=== PATIENT | female | born 1975 | race African-American/Black ===

== ENCOUNTER 2022-06-08 11:34 | Inpatient (IN) | payer OTHER ==
[2022-06-08] MEDS ORDERED: ONDANSETRON *ODT* 4 MG TABLET SL PRN (12:26)
[2022-06-08] MEDS ORDERED: NICOTINE 10 MG CARTRIDGE (INHALER) IH PRN (12:26)
[2022-06-08] MEDS ORDERED: BISMUTH SUBSALICYLATE 262 MG/15 ML BTL PO PRN (12:26)
[2022-06-08] MEDS ORDERED: ACETAMINOPHEN 325 MG TABLET (FP) PO PRN (12:26)
[2022-06-08] MEDS ORDERED: BENZOCAINE/MENTHOL (CHLORASEPTIC ) LOZENGE MM PRN (12:26)
[2022-06-08] MEDS ORDERED: IBUPROFEN 600 MG TABLET (FP) PO PRN (12:26)
[2022-06-08] MEDS ORDERED: MAGNESIUM HYDROX 2400MG/30ML ORAL SUSPENSION 30 ML CUP PO PRN (12:26)
[2022-06-08] MEDS ORDERED: NALOXONE HCL (KLOXXADO) 8 MG SPRAY NS PRN (12:26)
[2022-06-08] MEDS ORDERED: LOPERAMIDE HCL 2 MG CAPSULE PO PRN (12:26)
[2022-06-08] MEDS ORDERED: MAGNESIUM CITRATE 300 ML BOTTLE PO PRN (12:26)
[2022-06-08] MEDS ORDERED: DICYCLOMINE HCL 10 MG CAPSULE PO PRN (12:26)
[2022-06-08] MEDS ORDERED: IBUPROFEN 400 MG TABLET (FP) PO PRN (12:26)
[2022-06-08] MEDS ORDERED: MAG HYDROX/AL HYDROX/SIMETH 30 ML UNIT-DOSE CUP PO PRN (12:26)
[2022-06-08] MEDS ORDERED: chlordiazePOXIDE HCL 25 MG CAPSULE PO PRN (12:26)
[2022-06-08 12:42] VITALS: BMI 35.2
[2022-06-08] MEDS: chlordiazePOXIDE HCL 25 MG CAPSULE PO SCH ×3 (13:26→22:16)
[2022-06-08] MEDS: PRENATAL VITAMINS W/ FOLIC ACID TABLET (FP) PO SCH (13:27)
[2022-06-08] MEDS: hydrOXYzine PAMOATE 25 MG CAPSULE (FP) PO PRN ×2 (13:28→22:16)
[2022-06-08] MEDS: METHOCARBAMOL 500 MG TABLET PO PRN ×2 (14:35→22:18)
[2022-06-08 17:16] VITALS: RESP 18
[2022-06-08] MEDS: MELATONIN 5 MG TABLETS PO SCH (22:16)
[2022-06-08] MEDS: THIAMINE HCL 100 MG TABLET (FP) PO SCH (22:16)
[2022-06-08] MEDS: ACETAMINOPHEN 325 MG TABLET (FP) PO PRN (22:17)
[2022-06-09] MEDS: METHOCARBAMOL 500 MG TABLET PO PRN (03:56)
[2022-06-09] MEDS: chlordiazePOXIDE HCL 25 MG CAPSULE PO SCH ×4 (05:59→23:31)
[2022-06-09] MEDS: hydrOXYzine PAMOATE 25 MG CAPSULE (FP) PO PRN (06:01)
[2022-06-09 09:48] LABS: ALBUMIN 2.8 g/dl (3.4-5.0); CALCIUM 8.6 mg/dL (8.5-10.1)
[2022-06-09 09:49] LABS: BLOOD UREA NITROGEN 13.7 mg/dL (7-18)
[2022-06-09 09:53] LABS: BILIRUBIN,TOTAL 0.4 mg/dL (0.2-1); CREATININE 0.9 mg/dL (0.55-1.3); TOT PROT 6.8 g/dl (6.4-8.2)
[2022-06-09] MEDS ORDERED: NICOTINE 14 MG/24 HOURS TOPICAL PATCH TD SCH (10:00)
[2022-06-09 10:06] LABS: HEMATOCRIT 34.8 % (32.4-45.2); HEMOGLOBIN 10.4 GM/dL (10.7-15.3); MCHC 29.8 g/dl (32.0-36.0); MEAN CELL VOLUME 77.1 fl (80-96); MEAN PLT VOLUME 8.2 fl (7.5-11.1); PLATELET COUNT 303 10^3/uL (134-434); RBC 4.51 M/mm3 (3.60-5.2); RDW 16.8 % (11.6-15.6); WHITE BLOOD COUNT 14.2 K/mm3 (4.0-10.0)
[2022-06-09] MEDS: PRENATAL VITAMINS W/ FOLIC ACID TABLET (FP) PO SCH (10:21)
[2022-06-09] MEDS: ACETAMINOPHEN 325 MG TABLET (FP) PO PRN (10:39)
[2022-06-09] MEDS: BACITRACIN 15 GM TUBE TOPICAL OINTMENT TP SCH ×2 (13:14→23:30)
[2022-06-09] MEDS: LACTULOSE 20 GM/30 ML UDC (FOR ORAL USE ONLY) PO SCH ×2 (14:47→23:30)
[2022-06-09] MEDS ORDERED: METOPROLOL TARTRATE 25 MG TABLET (FP) PO ONE (15:06)
[2022-06-09 15:09] VITALS: BP 178/122; PULSE 89; TEMP 98.6
[2022-06-09] MEDS: THIAMINE HCL 100 MG TABLET (FP) PO SCH (23:30)
[2022-06-09] MEDS: MELATONIN 5 MG TABLETS PO SCH (23:30)
[2022-06-10] MEDS ORDERED: chlordiazePOXIDE HCL 25 MG CAPSULE PO SCH (05:00)
[2022-06-10] MEDS ORDERED: amLODIPine BESYLATE 10 MG TABLET (FP) PO SCH (10:00)
[2022-06-11] MEDS ORDERED: chlordiazePOXIDE HCL 10 MG CAPSULE PO PRN
[2022-06-11] MEDS ORDERED: chlordiazePOXIDE HCL 10 MG CAPSULE PO SCH (05:00)
[2022-06-12] MEDS ORDERED: chlordiazePOXIDE HCL 10 MG CAPSULE PO SCH (05:00)
[2022-06-13] MEDS ORDERED: chlordiazePOXIDE HCL 10 MG CAPSULE PO ONE (05:00)
== END 2022-06-09 23:48 | disposition short-term general hospital (02) | DRG 774 ==
LOC: YASAS 11:34 → Y3N 12:38
PROVIDERS: ADMIT Allergy & Immunology; ATTEND Surgery
PROC: HZ2ZZZZ Detoxification Services for Substance Abuse Treatment (ICD-10-PCS; principal; 2022-06-08)
DX: F10.230 Alcohol dependence with withdrawal, uncomplicated (principal); F14.20 Cocaine dependence, uncomplicated; F12.20 Cannabis dependence, uncomplicated; F17.210 Nicotine dependence, cigarettes, uncomplicated; F33.9 Major depressive disorder, recurrent, unspecified; D64.9 Anemia, unspecified; D72.829 Elevated white blood cell count, unspecified; R79.89 Other specified abnormal findings of blood chemistry; R94.31 Abnormal electrocardiogram [ECG] [EKG]; E66.9 Obesity, unspecified; Z68.35 Body mass index [BMI] 35.0-35.9, adult; Z91.199 Patient's noncompliance with other medical treatment and regimen due to unspecified reason
CPT/HCPCS: 36415; 80053; 81025; 82140; 85027; 86780; 93005; 93010; C9803-CS; U0003; U0005

== ENCOUNTER 2022-06-09 16:39 | Inpatient (IN) | payer OTHER ==
[2022-06-09] MEDS ORDERED: morphine CARPU-JECT 4 MG/1 ML DISP.SYRIN IVPUSH ONE (17:02)
[2022-06-09] MEDS ORDERED: FAMOTIDINE 20 MG/50 ML IVPB 20 MG/50 ML MG IVPB ONE (17:02)
[2022-06-09] MEDS ORDERED: ONDANSETRON 4 MG/2 ML VIAL IVPUSH ONE (17:02)
[2022-06-09] MEDS ORDERED: LACTATED RINGERS SOLUTION 1000 ML INFUS.BAG IV ONE (17:02)
[2022-06-09 17:20] VITALS: BMI 33.2
[2022-06-09] MEDS ORDERED: ACETAMINOPHEN 1000 MG/100 ML BAG IVPB ONE (17:21)
[2022-06-09] MEDS ORDERED: ONDANSETRON 4 MG/2 ML VIAL ONE (17:51)
[2022-06-09] MEDS ORDERED: ACETAMINOPHEN INJECTION 100 ML IVPB ONE (17:51)
[2022-06-09] MEDS ORDERED: FAMOTIDINE 10 MG/ML VIAL IVPB ONE (17:52)
[2022-06-09 18:22] LABS: VENOUS O2 SATURATION 31.7 % (70-80); VENOUS PCO2 60.3 mmHg (38-52); VENOUS PH 7.312 (7.310-7.410)
[2022-06-09 18:25] LABS: BASO % 0.4 % (0-2.0); EOS % 0.3 % (0-4.5); HEMATOCRIT 35.1 % (32.4-45.2); HEMOGLOBIN 11.3 GM/dL (10.7-15.3); MCH 24.4 pg (25.7-33.7); MCHC 32.3 g/dl (32.0-36.0); MEAN CELL VOLUME 75.6 fl (80-96); MEAN PLT VOLUME 8.2 fl (7.5-11.1); MONO % 5.4 % (3.8-10.2); NEUT % 90.9 % (42.8-82.8); PLATELET COUNT 389 10^3/uL (134-434); RBC 4.65 M/mm3 (3.60-5.2); RDW 16.7 % (11.6-15.6); WHITE BLOOD COUNT 18.8 K/mm3 (4.0-10.0)
[2022-06-09 18:35] LABS: INR 1.1 (0.83-1.09); PROTHROMBIN TIME (PATIENT) 12.7 SEC (9.7-13.0)
[2022-06-09 18:38] LABS: ACTIVATED PTT 27.4 SECONDS (25.2-36.5)
[2022-06-09 18:39] LABS: ALBUMIN 3.2 g/dl (3.4-5.0); BLOOD UREA NITROGEN 16.3 mg/dL (7-18); CALCIUM 9.2 mg/dL (8.5-10.1); MAGNESIUM 2.2 mg/dL (1.8-2.4)
[2022-06-09 18:45] LABS: BILIRUBIN,TOTAL 0.3 mg/dL (0.2-1); TOT PROT 7.8 g/dl (6.4-8.2)
[2022-06-09 18:55] LABS: EPI CELLS >36 /uL (0-25.1); HYALINE CASTS 1 /uL (0-3.1); URINE APPEARANCE TURBID; URINE BACTERIA >9,000 /uL (0-1359); URINE BILIRUBIN NEGATIVE (NEGATIVE); URINE COLOR YELLOW; URINE GLUCOSE (UA) NEGATIVE (NEGATIVE); URINE KETONE NEGATIVE (NEGATIVE); URINE LEUK ESTERASE 3+ (NEGATIVE); URINE NITRITE NEGATIVE (NEGATIVE); URINE PROTEIN 1+ (NEGATIVE); URINE RBC 102 /uL (0-23.9); URINE UROBILINOGEN 0.2 mg/dL (0.2-1.0); URINE WBC 2338 /uL (0-25.8)
[2022-06-09] MEDS ORDERED: PIPERACILLIN/TAZOB 4.5 GM 4.5 GM in DEXTROSE 5%-WATER 100 ML IVPB ONE (19:50)
[2022-06-09] MEDS ORDERED: PIPERACILLIN/TAZOB 4.5 GM 4.5 GM/100 ML BAG IVPB ONE (20:27)
[2022-06-10] MEDS ORDERED: LORazepam 1 MG TABLET PO PRN (01:26)
[2022-06-10] MEDS ORDERED: ACETAMINOPHEN 325 MG TABLET (FP) PO ONE (02:27)
[2022-06-10] MEDS ORDERED: MELATONIN 5 MG TABLETS PO ONE (02:27)
[2022-06-10] MEDS: LORazepam 1 MG TABLET PO SCH ×4 (06:25→23:43)
[2022-06-10] MEDS: POLYETHYLENE GLYCOL (HEALTHYLAX) 3350 17 GM PACKET PO SCH ×3 (06:27→23:01)
[2022-06-10 09:44] LABS: CALCIUM 8.8 mg/dL (8.5-10.1)
[2022-06-10 09:45] LABS: ALBUMIN 2.6 g/dl (3.4-5.0); MAGNESIUM 2.2 mg/dL (1.8-2.4)
[2022-06-10 09:48] LABS: CREATININE 0.9 mg/dL (0.55-1.3)
[2022-06-10 09:49] LABS: BILIRUBIN,TOTAL 0.5 mg/dL (0.2-1); TOT PROT 6.4 g/dl (6.4-8.2)
[2022-06-10] MEDS: FOLIC ACID 1 MG TABLET (FP) PO SCH (10:02)
[2022-06-10] MEDS: ENOXAPARIN NA (PORCINE) 40 MG/0.4 ML DISP.SYRIN SQ SCH (10:02)
[2022-06-10] MEDS: amLODIPine BESYLATE 5 MG TABLET (FP) PO SCH (10:02)
[2022-06-10] MEDS: CEFTRIAXONE 1 GM in DEXTROSE 5%-WATER - 50 ML IVPB SCH (10:02)
[2022-06-10] MEDS: THIAMINE HCL 100 MG TABLET (FP) PO SCH (10:02)
[2022-06-10] MEDS ORDERED: BISACODYL 10 MG SUPP.RECT PR ONE (14:19)
[2022-06-10] MEDS: ACETAMINOPHEN 325 MG TABLET (FP) PO PRN (17:55)
[2022-06-10] MEDS: LISINOPRIL 20 MG TABLET PO SCH (23:01)
[2022-06-11] MEDS ORDERED: LORazepam 1 MG TABLET PO SCH (05:00)
[2022-06-11] MEDS: POLYETHYLENE GLYCOL (HEALTHYLAX) 3350 17 GM PACKET PO SCH ×3 (06:00→23:18)
[2022-06-11] MEDS: FOLIC ACID 1 MG TABLET (FP) PO SCH (09:03)
[2022-06-11] MEDS: amLODIPine BESYLATE 5 MG TABLET (FP) PO SCH (09:03)
[2022-06-11] MEDS: THIAMINE HCL 100 MG TABLET (FP) PO SCH (09:03)
[2022-06-11] MEDS: ENOXAPARIN NA (PORCINE) 40 MG/0.4 ML DISP.SYRIN SQ SCH (09:04)
[2022-06-11] MEDS: CEFTRIAXONE 1 GM in DEXTROSE 5%-WATER - 50 ML IVPB SCH (09:04)
[2022-06-11] MEDS: ACETAMINOPHEN 325 MG TABLET (FP) PO PRN ×2 (09:34→23:25)
[2022-06-11] MEDS ORDERED: BISACODYL 10 MG SUPP.RECT PR ONE (10:45)
[2022-06-11] MEDS ORDERED: LORazepam 2 MG/ML SDV VIAL IVPUSH PRN (13:23)
[2022-06-11 13:36] LABS: BASO % 0.3 % (0-2.0); EOS % 0.4 % (0-4.5); HEMATOCRIT 32.8 % (32.4-45.2); HEMOGLOBIN 10.1 GM/dL (10.7-15.3); LYMPH % 7.9 % (8-40); MCH 23.2 pg (25.7-33.7); MCHC 30.7 g/dl (32.0-36.0); MEAN CELL VOLUME 75.6 fl (80-96); MEAN PLT VOLUME 8.6 fl (7.5-11.1); MONO % 10.5 % (3.8-10.2); NEUT % 80.9 % (42.8-82.8); PLATELET COUNT 347 10^3/uL (134-434); RBC 4.34 M/mm3 (3.60-5.2); RDW 15.8 % (11.6-15.6); WHITE BLOOD COUNT 16.8 K/mm3 (4.0-10.0)
[2022-06-11 13:45] LABS: BLOOD UREA NITROGEN 10.6 mg/dL (7-18); CALCIUM 8.3 mg/dL (8.5-10.1); MAGNESIUM 2.5 mg/dL (1.8-2.4)
[2022-06-11 13:47] LABS: CREATININE 0.8 mg/dL (0.55-1.3)
[2022-06-11 13:48] LABS: PHOSPHOROUS 3.3 mg/dL (2.5-4.9)
[2022-06-11] MEDS ORDERED: amLODIPine BESYLATE 5 MG TABLET (FP) PO ONE (15:50)
[2022-06-11] MEDS: LISINOPRIL 20 MG TABLET PO SCH (23:18)
[2022-06-12] MEDS ORDERED: LORazepam 0.5 MG TABLET PO PRN
[2022-06-12] MEDS ORDERED: LORazepam 0.5 MG TABLET PO SCH (05:00)
[2022-06-12] MEDS: POLYETHYLENE GLYCOL (HEALTHYLAX) 3350 17 GM PACKET PO SCH ×3 (06:11→22:31)
[2022-06-12] MEDS: amLODIPine BESYLATE 5 MG TABLET (FP) PO SCH (10:05)
[2022-06-12] MEDS: THIAMINE HCL 100 MG TABLET (FP) PO SCH (10:06)
[2022-06-12] MEDS: FOLIC ACID 1 MG TABLET (FP) PO SCH (10:06)
[2022-06-12] MEDS: ENOXAPARIN NA (PORCINE) 40 MG/0.4 ML DISP.SYRIN SQ SCH (10:06)
[2022-06-12 12:37] LABS: BLOOD UREA NITROGEN 10.2 mg/dL (7-18); CALCIUM 9.3 mg/dL (8.5-10.1)
[2022-06-12 12:38] LABS: ALBUMIN 2.7 g/dl (3.4-5.0)
[2022-06-12 12:41] LABS: CREATININE 0.8 mg/dL (0.55-1.3)
[2022-06-12 12:42] LABS: BILIRUBIN,TOTAL 0.4 mg/dL (0.2-1)
[2022-06-12 12:46] LABS: TOT PROT 7.1 g/dl (6.4-8.2)
[2022-06-12 12:47] LABS: HEMATOCRIT 31.8 % (32.4-45.2); HEMOGLOBIN 10.1 GM/dL (10.7-15.3); MCH 23.7 pg (25.7-33.7); MCHC 31.9 g/dl (32.0-36.0); MEAN CELL VOLUME 74.5 fl (80-96); MEAN PLT VOLUME 8.2 fl (7.5-11.1); PLATELET COUNT 380 10^3/uL (134-434); RBC 4.27 M/mm3 (3.60-5.2); WHITE BLOOD COUNT 12.8 K/mm3 (4.0-10.0)
[2022-06-12] MEDS: CEFTRIAXONE 1 GM in DEXTROSE 5%-WATER - 50 ML IVPB SCH ×2 (15:28→19:44)
[2022-06-12] MEDS ORDERED: NITROFURANTOIN MACROCRYSTAL 50 MG CAPSULE (FP) PO SCH (18:00)
[2022-06-12] MEDS: ACETAMINOPHEN 325 MG TABLET (FP) PO PRN (19:01)
[2022-06-12] MEDS: LISINOPRIL 20 MG TABLET PO SCH (22:31)
[2022-06-13] MEDS ORDERED: guaiFENesin 200 MG/10 ML 10 ML UNIT-DOSE CUPS PO ONE (00:52)
[2022-06-13] MEDS ORDERED: MELATONIN 5 MG TABLETS PO ONE ×2 (00:52→20:00)
[2022-06-13] MEDS ORDERED: BENZOCAINE/MENTH/CETYLPYRD CL 1 EACH LOZENGE MM PRN (00:53)
[2022-06-13] MEDS ORDERED: LORazepam 0.5 MG TABLET PO ONE (05:00)
[2022-06-13] MEDS: POLYETHYLENE GLYCOL (HEALTHYLAX) 3350 17 GM PACKET PO SCH ×3 (05:58→21:10)
[2022-06-13] MEDS: THIAMINE HCL 100 MG TABLET (FP) PO SCH ×2 (10:52→11:56)
[2022-06-13] MEDS: ENOXAPARIN NA (PORCINE) 40 MG/0.4 ML DISP.SYRIN SQ SCH ×2 (10:52→11:55)
[2022-06-13] MEDS: amLODIPine BESYLATE 5 MG TABLET (FP) PO SCH ×2 (10:52→11:55)
[2022-06-13] MEDS: FOLIC ACID 1 MG TABLET (FP) PO SCH ×2 (10:52→11:55)
[2022-06-13] MEDS: CEFTRIAXONE 1 GM in DEXTROSE 5%-WATER - 50 ML IVPB SCH (10:53)
[2022-06-13 10:58] LABS: HEMATOCRIT 34.9 % (32.4-45.2); HEMOGLOBIN 10.6 GM/dL (10.7-15.3); MCH 22.9 pg (25.7-33.7); MCHC 30.4 g/dl (32.0-36.0); MEAN CELL VOLUME 75.2 fl (80-96); MEAN PLT VOLUME 7.8 fl (7.5-11.1); PLATELET COUNT 404 10^3/uL (134-434); RBC 4.65 M/mm3 (3.60-5.2); RDW 15.8 % (11.6-15.6); WHITE BLOOD COUNT 12.7 K/mm3 (4.0-10.0)
[2022-06-13 11:35] LABS: ALBUMIN 2.7 g/dl (3.4-5.0); BLOOD UREA NITROGEN 7.9 mg/dL (7-18)
[2022-06-13 11:36] LABS: CALCIUM 9.5 mg/dL (8.5-10.1)
[2022-06-13 11:38] LABS: BILIRUBIN,TOTAL 0.4 mg/dL (0.2-1); CREATININE 0.9 mg/dL (0.55-1.3); TOT PROT 7.4 g/dl (6.4-8.2)
[2022-06-13] MEDS: NICOTINE 7 MG/24 HOURS TOPICAL PATCH TD SCH (14:32)
[2022-06-13] MEDS: NITROFURANTOIN MACROCRYSTAL 50 MG CAPSULE (FP) PO SCH ×2 (18:11→21:10)
[2022-06-13] MEDS: LISINOPRIL 20 MG TABLET PO SCH (21:12)
[2022-06-14] MEDS: POLYETHYLENE GLYCOL (HEALTHYLAX) 3350 17 GM PACKET PO SCH ×2 (05:44→16:16)
[2022-06-14] MEDS: FOLIC ACID 1 MG TABLET (FP) PO SCH (09:26)
[2022-06-14] MEDS: NITROFURANTOIN MACROCRYSTAL 50 MG CAPSULE (FP) PO SCH ×2 (09:26→15:16)
[2022-06-14] MEDS: THIAMINE HCL 100 MG TABLET (FP) PO SCH (09:27)
[2022-06-14] MEDS: amLODIPine BESYLATE 5 MG TABLET (FP) PO SCH (09:27)
[2022-06-14] MEDS: NICOTINE 7 MG/24 HOURS TOPICAL PATCH TD SCH (09:27)
[2022-06-14] MEDS: ENOXAPARIN NA (PORCINE) 40 MG/0.4 ML DISP.SYRIN SQ SCH (09:38)
[2022-06-14] MEDS ORDERED: NICOTINE 7 MG/24 HOURS TOPICAL PATCH TD SCH (10:00)
[2022-06-14 10:10] LABS: HEMATOCRIT 33.7 % (32.4-45.2); HEMOGLOBIN 10.7 GM/dL (10.7-15.3); MCH 24.1 pg (25.7-33.7); MCHC 31.8 g/dl (32.0-36.0); MEAN CELL VOLUME 75.6 fl (80-96); MEAN PLT VOLUME 7.7 fl (7.5-11.1); PLATELET COUNT 394 10^3/uL (134-434); RBC 4.46 M/mm3 (3.60-5.2); RDW 15.7 % (11.6-15.6); WHITE BLOOD COUNT 8.6 K/mm3 (4.0-10.0)
[2022-06-14 10:54] LABS: CALCIUM 9.1 mg/dL (8.5-10.1)
[2022-06-14 10:55] LABS: ALBUMIN 2.7 g/dl (3.4-5.0); BLOOD UREA NITROGEN 8.6 mg/dL (7-18)
[2022-06-14 10:57] LABS: CREATININE 0.8 mg/dL (0.55-1.3)
[2022-06-14 10:59] LABS: BILIRUBIN,TOTAL 0.2 mg/dL (0.2-1); TOT PROT 7.4 g/dl (6.4-8.2)
[2022-06-14 15:03] VITALS: BP 132/72; PULSE 94; RESP 20; TEMP 98.4
[2022-06-14] MEDS: ACETAMINOPHEN 325 MG TABLET (FP) PO PRN (16:28)
== END 2022-06-14 16:47 | disposition home or self-care (01) | DRG 463 ==
LOC: JER 16:39 → JERBED 20:53 → J5S 06-10 01:25 → J8W 06-12 21:15
PROVIDERS: ADMIT Internal Medicine; ATTEND Internal Medicine
DX: N39.0 Urinary tract infection, site not specified (principal); U07.1 COVID-19; B96.20 Unspecified Escherichia coli [E. coli] as the cause of diseases classified elsewhere; D72.829 Elevated white blood cell count, unspecified; F10.239 Alcohol dependence with withdrawal, unspecified; F12.90 Cannabis use, unspecified, uncomplicated; F14.10 Cocaine abuse, uncomplicated; F17.210 Nicotine dependence, cigarettes, uncomplicated; I10 Essential (primary) hypertension; K59.00 Constipation, unspecified; R11.2 Nausea with vomiting, unspecified; R14.0 Abdominal distension (gaseous); R31.9 Hematuria, unspecified
CPT/HCPCS: 0241U-QW; 36415; 71045-TC-FY; 74174-TC; 80048; 80053; 81003; 82803; 82962; 83036; 83605; 83690; 83735; 84100; 84484; 84703; 85025; 85027; 85610; 85730; 86850; 86900; 86901; 87040; 87086; 87186; 93005; 93010; 99285-25; C9803-CS; U0003; U0005